=== PATIENT | male | born 1980 | race Caucasian/White ===

== ENCOUNTER 2018-07-18 18:47 | Emergency (ER) | payer SELFPAY ==
[~2018-07-18] VITALS: Ht 167.6 cm; Wt 77.2 kg
[2018-07-18 18:54] VITALS: Ht 167.6 cm; Wt 77.2 kg
[2018-07-18] MEDS ORDERED: SODIUM CHLORIDE 0.9% 1L IRRIG IRR STA (19:02)
[2018-07-18] MEDS ORDERED: IBUP-1542 PO (19:09)
[2018-07-18] MEDS ORDERED: POLY10DR19 BOTH EYES (19:09)
[2018-07-18] MEDS ORDERED: FLUORESCEIN STRIP BOTH EYES ONE (19:30)
[2018-07-18] MEDS ORDERED: TETRACAINE 0.5% 4 ML OPH BOTH EYES ONE (19:30)
[2018-07-18] MEDS ORDERED: ONDANSETRON 4 MG INJ IV STA (19:35)
[2018-07-18] MEDS ORDERED: HYDROmorphONE 2 MG/ML SYG IV STA ×2 (19:35→20:12)
[2018-07-18] MEDS ORDERED: DIPHTH/TET/ACEL PERTUSS (ADULT) 0.5 ML VIAL IM* ONE (20:00)
[2018-07-18] MEDS ORDERED: IBUPROFEN 600 MG TAB PO ONE (20:00)
[2018-07-18] MEDS ORDERED: CEFTRIAXONE 1 GM/50 ML (PMX) 50 ML IVPB ONE (20:00)
[2018-07-18 21:36] VITALS: BP 135/84; PULSE 96; RESP 12
--- NOTE | 2018-08-08 07:20 | ERD ---
ER Documentation Chief Complaint Chief Complaint CHEMICALS IN EYE HPI 38-year-old man complaining of pain, redness, tearing to both eyes occurring shortly after he accidentally splashed sodium hypochlorite (Clorox bleach) into both eyes, worse on the left compared to the right. Episode occurred about 6-8 hours prior to arrival and patient states he irrigated both eyes multiple times at home but because of continued pain came here for evaluation. States he has pain to both eyes and has difficulty opening his eyes due to pain and also complains of blurry vision. He denies any other trauma, no fevers or chills, no vomiting, no chest pain or shortness of breath ROS All systems reviewed and are negative except as per history of present illness. Medications Home Meds Active Scripts Polymyxin B Sulfate-TMP* (Polymyxin B-TMP Eye Drops*) 10 Ml Drops, 2 DROP BOTH EYES TID for 7 Days, EA Prov:BRODY CORBETT MD 07/18/18 Ibuprofen* (Motrin*) 600 Mg Tab, 600 MG PO Q8 PRN for PAIN AND/OR INFLAMMATION, #30 TAB Prov:BRODY CORBETT MD 07/18/18 Allergies Allergies: Coded Allergies: No Known Allergy (Unverified , 07/18/18) PMhx/Soc Medical and Surgical Hx: pt denies Medical Hx, pt denies Surgical Hx Hx Alcohol Use: No Hx Substance Use: No Hx Tobacco Use: No Smoking Status: Never smoker FmHx Family History: No diabetes Physical Exam Vitals Per nurse's records Physical Exam GENERAL: Well-developed, well-nourished, moderate discomfort, afebrile HEENT: Bilateral conjunctival injection, chemosis, epiphora. Extraocular movements intact without pain, no purulent discharge. NEURO: Alert and oriented 3, cranial nerves II through XII intact bilaterally, pupils equal round reactive to light, no focal deficits or facial asymmetry, sensation intact distally Strength 5/5 in upper and lower extremities bilaterally CARDIAC: Regular rate and rhythm, no murmurs rubs or gallops LUNGS: Clear bilaterally no wheezing crackles or stridor ABDOMEN: Soft nontender, no guarding, no rigidity, no rebound, no psoas sign no obturator sign. Normoactive bowel sounds SKIN: Warm and dry to touch, no abrasions, contusions, or hematomas, no lacerations, no ecchymosis, no target lesions, and without ulcers PSYCH: Normal affect without agitation or irritability Results 24 hrs Laboratory Tests Test 07/18/18 19:37 White Blood Count 12.6 10^3/ul Red Blood Count 5.00 10^6/ul Hemoglobin 14.1 g/dl Hematocrit 42.3 % Mean Corpuscular Volume 84.6 fl Mean Corpuscular Hemoglobin 28.2 pg Mean Corpuscular Hemoglobin Concent 33.3 g/dl Red Cell Distribution Width 13.1 % Platelet Count 249 10^3/UL Mean Platelet Volume 11.7 fl Immature Granulocytes % 0.400 % Neutrophils % 84.3 % Lymphocytes % 10.5 % Monocytes % 4.4 % Eosinophils % 0.2 % Basophils % 0.2 % Nucleated Red Blood Cells % 0.0 /100WBC Immature Granulocytes # 0.050 10^3/ul Neutrophils # 10.6 10^3/ul Lymphocytes # 1.3 10^3/ul Monocytes # 0.6 10^3/ul Eosinophils # 0.0 10^3/ul Basophils # 0.0 10^3/ul Nucleated Red Blood Cells # 0.0 10^3/ul Prothrombin Time 12.7 Sec Prothrombin Time Ratio 1.0 INR International Normalized Ratio 0.94 Activated Partial Thromboplast Time 29.3 Sec Sodium Level 141 mmol/L Potassium Level 3.5 mmol/L Chloride Level 104 mmol/L Carbon Dioxide Level 25 mmol/L Anion Gap 12 Blood Urea Nitrogen 14 mg/dl Creatinine 0.94 mg/dl Est Glomerular Filtrat Rate mL/min > 60 mL/min Glucose Level 104 mg/dl Calcium Level 9.7 mg/dl Current Medications Medications Dose Sig/Polo Start Time Status Last (Trade) Ordered Route PRN Stop Time Admin Dose Reason Admin Tetracaine 2 drop ONCE ONCE 07/18/18 DC 07/18/18 HCl BOTH EYES 19:30 19:09 (Tetracaine 07/18/18 19:31 0.5% Steri-Unit Winsome) Sodium 1,000 ml ONCE STAT 07/18/18 DC 07/18/18 Chloride IRR 19:02 19:09 (NS (Irrig)) 07/18/18 19:04 Fluorescein 1 strip ONCE ONCE 07/18/18 DC 07/18/18 Sodium BOTH EYES 19:30 21:09 ([id number] 07/18/18 19:31 p) Ceftriaxone 50 ml @ ONCE ONCE 07/18/18 DC 07/18/18 Sodium 100 mls/hr IVPB 20:00 19:52 07/18/18 20:29 Diphtheria/ 0.5 ml ONCE ONCE 07/18/18 DC 07/18/18 Tetanus/Acell IM* 20:00 19:51 Pertussis 07/18/18 20:01 (Adacel) 1 mg ONCE STAT 07/18/18 DC 07/18/18 Hydromorphone IV 19:35 19:51 HCl 07/18/18 19:37 (Dilaudid) Ondansetron 4 mg ONCE STAT 07/18/18 DC 07/18/18 HCl (Zofran IV 19:35 19:51 Inj) 07/18/18 19:37 Ibuprofen 600 mg ONCE ONCE 07/18/18 DC 07/18/18 (Motrin) PO 20:00 19:52 07/18/18 20:01 1 mg ONCE STAT 07/18/18 DC 07/18/18 Hydromorphone IV 20:12 20:26 HCl 07/18/18 20:13 (Dilaudid) Procedures/MDM Tetracaine anesthetic eyedrops were applied to both eyes for comfort measures and I irrigated both eyes copiously Via Hammad lens I administered tetanus toxoid IM, hydromorphone 2 mg IV, Zofran 4 mg IV, c eftriaxone 1 g IV, and ibuprofen 600 mg p.o. I applied fluorescein stain to both eyes and observed under Melissa lamp. Left cornea reveals a large ulceration and fluorescein uptake. Given the extent of injury to the left cornea I arranged transfer via [facility] to the [facility] with where they have ophthalmology services. Departure Diagnosis: Primary Impression: Acute chemical conjunctivitis of both eyes Additional Impression: At high risk for corneal abrasion Condition: Fair Patient Instructions: Conjunctivitis, Non-Specific BRODY CORBETT MD Aug 08, 2018 07:19
== END 2018-07-18 21:47 | disposition short-term general hospital (02) ==
LOC: E/R 18:47
DX: S05.02XA Injury of conjunctiva and corneal abrasion without foreign body, left eye, initial encounter (principal); S05.01XA Injury of conjunctiva and corneal abrasion without foreign body, right eye, initial encounter; H10.213 Acute toxic conjunctivitis, bilateral; T54.91XA Toxic effect of unspecified corrosive substance, accidental (unintentional), initial encounter; X58.XXXA Exposure to other specified factors, initial encounter; Z23 Encounter for immunization
CPT/HCPCS: 80048; 85025; 85610; 85730; 90471; 90715; 96374; 96375; 96376; 99285; J0696; J1170; J2405